=== PATIENT | female | born 1940 | race Caucasian/White ===

== ENCOUNTER → 2018-07-19 07:51 | Outpatient (CLI) | payer MEDICARE, BC, SELFPAY ==
--- NOTE | 2018-07-19 | DI.MG.S_ITS ---
BILATERAL DIGITAL SCREENING MAMMOGRAM 3D/2D WITH CAD: 07/19/2018 CLINICAL: Routine screening. Comparison is made to exams dated: 05/18/2017 mammogram, 05/02/2016 mammogram, and 04/07/2015 mammogram - [facility]. There are scattered fibroglandular elements in both breasts. Current study was also evaluated with a Computer Aided Detection (CAD) system. There is architectural distortion in the left breast at 2 o'clock posterior depth. No other significant masses, calcifications, or other findings are seen in either breast. IMPRESSION: INCOMPLETE: NEEDS ADDITIONAL IMAGING EVALUATION The architectural distortion in the left breast is indeterminate. Additional views with possible ultrasound are recommended. This exam was interpreted at Station ID: [id number]. NOTE: For mammograms, a report in lay terms will be sent to the patient. Approximately 15% of breast malignancies will not be visualized mammographically. In the management of a palpable breast mass, a negative mammogram must not discourage biopsy of a clinically suspicious lesion. Electronically Signed By: Shante love/nehemiah:07/19/2018 09:14:41 letter sent: Additional Imaging Needed ACR BI-RADS Category 0: Incomplete 3340F
== END ==
PROVIDERS: PCP Nurse Practitioner Family; Visit Provider Nurse Practitioner Family
DX: Z12.31 Encounter for screening mammogram for malignant neoplasm of breast (principal)
CPT/HCPCS: 77063; 77067

== ENCOUNTER → 2018-08-15 14:37 | Outpatient (CLI) | payer MEDICARE, BC, SELFPAY ==
--- NOTE | 2018-08-15 | DI.MG.S_ITS ---
UNILATERAL LEFT DIGITAL DIAGNOSTIC MAMMOGRAM 3D/2D WITH ADDITIONAL VIEWS: 08/15/2018 CLINICAL: Additional evaluation requested from prior study. Comparison is made to exams dated: 07/19/2018 mammogram, 05/18/2017 mammogram, and 05/02/2016 mammogram - [facility]. There are scattered fibroglandular elements in left breast. There is architectural distortion in the left breast at 2 o'clock posterior depth. This is less prominent on additional views. No other significant masses or calcifications are seen in the breast. IMPRESSION: INCOMPLETE: NEEDS ADDITIONAL IMAGING EVALUATION The architectural distortion in the left breast is indeterminate. A targeted ultrasound of the left breast is recommended and will be performed immediately following this exam. This exam was interpreted at Station ID: [id number]. NOTE: For mammograms, a report in lay terms will be sent to the patient. Approximately 15% of breast malignancies will not be visualized mammographically. In the management of a palpable breast mass, a negative mammogram must not discourage biopsy of a clinically suspicious lesion. Electronically Signed By: Shante Piña M.D. lk/:08/15/2018 15:05:52 letter sent: Additional Imaging Needed ACR BI-RADS Category 0: Incomplete 3340F
--- NOTE | 2018-08-15 | DI.US.S_ITS ---
ULTRASOUND OF LEFT BREAST: 08/15/2018 CLINICAL: Patient returns for additional imaging over a suspected mass in the left breast. Comparison is made to exams dated: 08/15/2018 mammogram, 07/19/2018 mammogram, and 05/18/2017 mammogram - [facility]. Color flow and real-time ultrasound of the left breast were performed on the areas of interest. Rodgers scale images of the real-time examination were reviewed. There is 0.5 cm x 0.4 cm x 0.9 cm irregular mass in the left breast at 2 o'clock posterior depth. This irregular mass is hypoechoic. This correlates with mammography findings. Color flow imaging demonstrates that there is vascularity present. IMPRESSION: SUSPICIOUS OF MALIGNANCY The 0.5 cm x 0.4 cm x 0.9 cm irregular mass in the left breast is at a low suspicion for malignancy. An ultrasound guided biopsy is recommended. This exam was interpreted at Station ID: [id number]. SUMMARY: This was discussed with the patient by the radiologist, Dr. Banegas at the time of the exam. Electronically Signed By: Shante love/nehemiah:08/15/2018 17:51:49 letter sent: Biopsy Required Ultrasound BI-RADS: 4a Suspicious abnormality - low suspicion for malignancy
== END ==
PROVIDERS: PCP Nurse Practitioner Family; Visit Provider Nurse Practitioner Family
DX: R92.8 Other abnormal and inconclusive findings on diagnostic imaging of breast (principal); N63.21 Unspecified lump in the left breast, upper outer quadrant
CPT/HCPCS: 76642; 77065; G0279

== ENCOUNTER → 2018-09-17 12:18 | Outpatient (CLI) | payer MEDICARE, BC, SELFPAY ==
--- NOTE | 2018-09-17 | DI.MG.S_ITS ---
UNILATERAL LEFT DIGITAL DIAGNOSTIC MAMMOGRAM: 09/17/2018 CLINICAL: Post clip placement. Comparison is made to exams dated: 08/15/2018 mammogram, 07/19/2018 mammogram, 05/18/2017 mammogram, and 05/02/2016 mammogram - [facility]. There are scattered fibroglandular elements in left breast. There is a marker clip in the appropriate position in the left breast at 3 o'clock anterior depth. This marker clip placement is at the biopsy site. IMPRESSION: POST PROCEDURE MAMMOGRAM FOR MARKER PLACEMENT There was a successful marker clip placement in the left breast anterior depth. This exam was interpreted at Station ID: [id number]. NOTE: For mammograms, a report in lay terms will be sent to the patient. Approximately 15% of breast malignancies will not be visualized mammographically. In the management of a palpable breast mass, a negative mammogram must not discourage biopsy of a clinically suspicious lesion. Electronically Signed By: Joao humphreys/:09/17/2018 15:40:16 ACR BI-RADS Category Post-procedure mammogram for marker placement
--- NOTE | 2018-09-17 | PATH_ITS ---
[facility] Accession Number: [id number] . 01 Material submitted: . LEFT BREAST . 01 Clinical history: . MASS 2:30 6CM FN . 01 Diagnosis: Left Breast, Needle Core Biopsies: Breast parenchyma with fibrocystic changes. Negative for atypical hyperplasia, in situ or invasive carcinoma. Additional step sections examined. MRV/09/19/2018 . 01 Comment: As part of routine quality control systems manager, Dr. Anton has reviewed the initial levels from this case and agrees with the above diagnosis. . 01 Electronically signed: . Rory Pendleton MD, PhD, Pathologist NPI- [id number] . 01 Gross description: . Received one formalin-filled container labeled with the patient's name and designated left breast mass 2:30, 6 cm FN. The specimen is received with plastic filter, sample loose in container. The specimen consists of multiple fragments of light yellow-navarro to yellow-sanchez tissue, which aggregate to 1.5 x 0.5 x 0.2 cm. The specimen is filtered, wrapped and entirely submitted in one cassette. Collection date 09/17/2018. Collection time 1:40 p.m., per container. Total fixation time 12 hours up to 24. ([facility] [employer]:[id number]) /[facility] . 01 Pathologist provided ICD-10: N63.21 . 01 CPT . 019433 Performed at: [address] [facility], [place], [place] [id number] MD Pavan Jasso MD Phone: [phone]
--- NOTE | 2018-09-17 | DI.US.S_ITS ---
ULTRASOUND GUIDED BIOPSY LEFT BREAST USING VACUUM DEVICE WITH MARKING DEVICE INSERTED: 09/17/2018 CLINICAL: Left breast mass. PATIENT CONSENT: Risks (minor bleeding, infection, vasovagal reaction and repeat procedure), benefits and alternatives were explained to the patient and written informed consent was obtained. Correlation is made to exams dated: 08/15/2018 ultrasound, 08/15/2018 mammogram, 07/19/2018 mammogram, 05/18/2017 mammogram, and 05/02/2016 mammogram - [facility]. An ultrasound guided biopsy using real-time ultrasound was performed for the mass located in the left breast at 2 o'clock posterior depth. This was described in previous comparison ultrasound exam of 08/15/2018. The skin was prepped in the usual manner. The abnormality was approached from the lateral aspect. A biopsy needle was placed adjacent to the abnormality under ultrasound guidance. Once the needle was documented to be in the correct location, three specimens were obtained using the Mammotome biopsy system. A clip was inserted into the biopsy cavity. The specimens were sent to the laboratory for pathological analysis. IMPRESSION: ULTRASOUND GUIDED BIOPSY Ultrasound guided biopsy of the mass in the left breast at 2 o'clock posterior depth was successful. Waiting for pathology results. Final pathology results per pathologist Dr. Rory Pendleton identified benign breast parenchyma with fibrocystic changes. Samples were negative for atypical hyperplasia, in situ, or invasive carcinoma. Findings are concordant with imaging. A follow-up ultrasound in 6 months is recommended. These results will be communicated to the patient's referring provider. This exam was interpreted at Station ID: [id number]. Joao humphreys,ecl/:10/02/2018 19:27:23
== END ==
PROVIDERS: PCP Nurse Practitioner Family; Visit Provider Nurse Practitioner Family
DX: N60.12 Diffuse cystic mastopathy of left breast (principal)
CPT/HCPCS: 19083; 77065; 88305

== ENCOUNTER → 2019-04-08 08:10 | Outpatient (CLI) | payer MEDICARE, BC, SELFPAY ==
--- NOTE | 2019-04-08 | DI.US.S_ITS ---
ULTRASOUND OF LEFT BREAST: 04/08/2019 CLINICAL: 6 month follow-up biopsy. Comparison is made to exams dated: 09/17/2018 mammogram, 09/17/2018 ultrasound biopsy, and 08/15/2018 [facility]. Color flow and real-time ultrasound of the left breast were performed. Rodgers scale images of the real-time examination were reviewed. There is a 0.6 cm x 0.4 cm x 0.2 cm oval mass in the left breast at 2 o'clock posterior depth. This abnormality is not significantly changed. There is a biopsy clip seen in the tissues immediately adjacent to the mass. IMPRESSION: BENIGN The 0.6 cm x 0.4 cm x 0.2 cm oval mass in the left breast has not significantly changed and was biopsy proven to be benign. Return to annual mammogram screening schedule is recommended. Findings and recommendations were conveyed to the patient at time of exam. This exam was interpreted at Station ID: [id number]. Electronically Signed By: Milly partida/:04/08/2019 08:59:04 letter sent: Normal Exam Ultrasound BI-RADS: 2 Benign
== END ==
PROVIDERS: PCP Nurse Practitioner Family; Visit Provider Nurse Practitioner Family
DX: R92.8 Other abnormal and inconclusive findings on diagnostic imaging of breast (principal); D24.2 Benign neoplasm of left breast
CPT/HCPCS: 76642

== ENCOUNTER → 2019-09-08 07:49 | Outpatient (CLI) | payer MEDICARE, BC, SELFPAY ==
--- NOTE | 2019-09-08 | DI.MG.S_ITS ---
BILATERAL DIGITAL SCREENING MAMMOGRAM 3D/2D WITH CAD: 09/08/2019 CLINICAL: Routine screening. Comparison is made to exams dated: 07/19/2018 mammogram, 05/18/2017 mammogram, and 05/02/2016 mammogram - [facility]. There are scattered fibroglandular elements in both breasts. Current study was also evaluated with a Computer Aided Detection (CAD) system. There are benign vascular calcifications in both breasts. No significant masses, calcifications, or other findings are seen in either breast. There has been no significant interval change. IMPRESSION: There is no mammographic evidence of malignancy. A 1 year screening mammogram is recommended. This exam was interpreted at Station ID: [id number]. NOTE: For mammograms, a report in lay terms will be sent to the patient. Approximately 15% of breast malignancies will not be visualized mammographically. In the management of a palpable breast mass, a negative mammogram must not discourage biopsy of a clinically suspicious lesion. Electronically Signed By: Shante love/nehemiah:09/09/2019 08:41:55 letter sent: Normal Exam ACR BI-RADS Category 2: Benign Finding(s) 3342F
== END ==
PROVIDERS: PCP Nurse Practitioner Family; Visit Provider Nurse Practitioner Family
DX: Z12.31 Encounter for screening mammogram for malignant neoplasm of breast (principal)
CPT/HCPCS: 77063; 77067

== ENCOUNTER → 2021-02-09 08:11 | Outpatient (CLI) | payer MEDICARE, BC, SELFPAY ==
--- NOTE | 2021-02-09 | DI.MG.S_ITS ---
BILATERAL DIGITAL SCREENING MAMMOGRAM 3D/2D WITH CAD: 02/09/2021 CLINICAL: Routine screening. Comparison is made to exams dated: 09/08/2019 mammogram, 07/19/2018 mammogram, and 05/18/2017 mammogram - [facility]. There are scattered fibroglandular elements in both breasts. Current study was also evaluated with a Computer Aided Detection (CAD) system. There are benign vascular calcifications in both breasts. There also is a biopsy clip in the left breast. No significant masses, calcifications, or other findings are seen in either breast. There has been no significant interval change. IMPRESSION: BENIGN There is no mammographic evidence of malignancy. A 1 year screening mammogram is recommended. This exam was interpreted at Station ID: [id number]. NOTE: For mammograms, a report in lay terms will be sent to the patient. Approximately 15% of breast malignancies will not be visualized mammographically. In the management of a palpable breast mass, a negative mammogram must not discourage biopsy of a clinically suspicious lesion. Electronically Signed By: Troy Morris acr/penrad:02/09/2021 09:53:51 letter sent: Normal Exam ACR BI-RADS Category 2: Benign Finding(s) 3342F
== END ==
PROVIDERS: PCP Nurse Practitioner Family; Referring Provider Nurse Practitioner Family; Visit Provider Nurse Practitioner Family
DX: Z12.31 Encounter for screening mammogram for malignant neoplasm of breast (principal)
CPT/HCPCS: 77063; 77067

== ENCOUNTER → 2021-12-01 08:17 | Outpatient (CLI) | payer MEDICARE, BC, SELFPAY ==
--- NOTE | 2021-12-01 08:20 | DI.RAD.S_ITS ---
PROCEDURE: XR CERVICAL SPINE 2V OR 3V INDICATIONS: scoliosis concern TECHNIQUE: 3 view(s) of the cervical spine were acquired. COMPARISON: None. FINDINGS: Bones: No fractures or dislocations to the C7 level. The lateral masses of C1 appear intact on the odontoid view. Moderate disc height loss with endplate osteophytosis most prominent at C5-C7. Uncovertebral/facet arthrosis. Soft tissues: No prevertebral soft tissue swelling. IMPRESSION: Degenerative change of the cervical spine as detailed above. Dictated by: Tree Kumar M.D. on 12/01/2021 at 10:28 Approved by: Tree Kumar M.D. on 12/01/2021 at 10:39
--- NOTE | 2021-12-01 08:21 | DI.RAD.S_ITS ---
PROCEDURE: XR THORACIC SPINE 2V INDICATIONS: scoliosis concern TECHNIQUE: 3 views of the thoracic spine were acquired. COMPARISON: None. FINDINGS: Bones: No fractures or dislocations. No suspicious bony lesions. 12 pairs of ribs are noted, and appear intact where visualized. Multilevel degenerative changes of the thoracic spine with anterior osteophytes at multiple levels. No vertebral body height loss. Mild S-shaped curvature of the thoracic spine with leftward curvature of the upper thoracic spine with the apex at T4 and a Dinh angle of 12?. Soft tissues: No paravertebral stripe thickening. The aorta has atherosclerotic calcifications. IMPRESSION: 1. Multilevel degenerative changes of the thoracic spine. 2. S-shaped curvature of the thoracic spine and with a left apex at T4 and a Dinh angle of 12? Dictated by: Troy Morris M.D. on 12/01/2021 at 11:09 Approved by: Troy Morris M.D. on 12/01/2021 at 11:12
--- NOTE | 2021-12-01 08:21 | DI.RAD.S_ITS ---
PROCEDURE: XR LUMBAR SPINE 2-3V INDICATIONS: scoliosis concern TECHNIQUE: 2 views of the lumbar spine were acquired. COMPARISON: None. FINDINGS: Bones: 5 vei-hyi-liftqgg vertebrae are present. There is normal bony alignment. No vertebral body compression fractures. No suspicious bony lesions. Degenerative disc disease, severe at L4-L5, moderate at T12-L1, L1-L2, L2-L3, L3-L4 and L5-S1. Severe facet arthropathy at L4-L5 and L5-S1. Soft tissues: Overlying bowel gas pattern is normal. Severe atherosclerotic calcifications. IMPRESSION: Severe degenerative disc disease and facet arthropathy. Dictated by: Cha Woo M.D. on 12/01/2021 at 17:21 Approved by: Cha Woo M.D. on 12/01/2021 at 17:23
== END ==
PROVIDERS: PCP Nurse Practitioner Family; Referring Provider Nurse Practitioner Family; Visit Provider Nurse Practitioner Family
DX: M47.812 Spondylosis without myelopathy or radiculopathy, cervical region (principal); M47.814 Spondylosis without myelopathy or radiculopathy, thoracic region; M47.816 Spondylosis without myelopathy or radiculopathy, lumbar region; M47.817 Spondylosis without myelopathy or radiculopathy, lumbosacral region; M51.35 Other intervertebral disc degeneration, thoracolumbar region; M51.36 Other intervertebral disc degeneration, lumbar region; M51.37 Other intervertebral disc degeneration, lumbosacral region
CPT/HCPCS: 72040; 72072; 72100

== ENCOUNTER → 2022-03-21 08:18 | Outpatient (CLI) | payer MEDICARE, BC, SELFPAY ==
--- NOTE | 2022-03-21 | DI.MG.S_ITS ---
BILATERAL DIGITAL SCREENING MAMMOGRAM 3D/2D WITH CAD: 03/21/2022 CLINICAL: Routine screening. Comparison is made to exams dated: 02/09/2021 mammogram, 09/08/2019 mammogram, 09/17/2018 mammogram, 08/15/2018 mammogram, and 07/19/2018 mammogram - [facility]. There are scattered fibroglandular elements in both breasts. Current study was also evaluated with a Computer Aided Detection (CAD) system. There are benign vascular calcifications in both breasts. There also are benign post operative findings and biopsy clip in the left breast. No significant masses, calcifications, or other findings are seen in either breast. There has been no significant interval change. IMPRESSION: BENIGN There is no mammographic evidence of malignancy. A 1 year screening mammogram is recommended. This exam was interpreted at Station ID: [id number]. NOTE: For mammograms, a report in lay terms will be sent to the patient. Approximately 15% of breast malignancies will not be visualized mammographically. In the management of a palpable breast mass, a negative mammogram must not discourage biopsy of a clinically suspicious lesion. Electronically Signed By: Galindo morfin/nehemiah:03/21/2022 09:50:51 letter sent: Normal Exam ACR BI-RADS Category 2: Benign Finding(s) 3342F
== END ==
PROVIDERS: PCP Nurse Practitioner Family; Referring Provider Nurse Practitioner Family; Visit Provider Nurse Practitioner Family
DX: Z12.31 Encounter for screening mammogram for malignant neoplasm of breast (principal)
CPT/HCPCS: 77063; 77067

== ENCOUNTER 2022-05-01 07:30 | Day surgery (SDC) | payer MEDICARE, BC, SELFPAY ==
[2022-05-01] VITALS (7 sets, daily range): BP systolic 127–170; BP diastolic 65–92; PULSE 65–94; RESP 16–18; TEMP 35.8–36.7; O2SAT 95–100; BMI 28.3
--- NOTE | 2022-05-01 | PATH_ITS ---
[facility] Accession Number: [id number] No. of containers..01 Tissue . 01 Material submitted: . colon - RANDOM COLON BIOPSIES . 01 Diagnosis: Random Colon, Biopsies: Lymphocytic colitis. MRV 05/02/2022 1105 Local . 01 Electronically signed: . Michelle Ravi MD, Pathologist NPI- [id number] . 01 Gross description: . RANDOM COLON BIOPSIES: Received in formalin are 4 fragment(s) of sanchez, soft tissue measuring 0.1 x 0.1 x 0.1 cm in aggregate submitted entirely in 1 cassette(s) /JCARLOS 05/02/2022 0116 Local . 01 Pathologist provided ICD-10: K52.89, R19.7 . 01 CPT . 228485 Specimen Comment: A courtesy copy of this report has been sent to [phone] Performed at: 01 [facility] [address] [place] [address], [place], [place] [id number] MD Pavan Jasso MD Phone: [phone]
[2022-05-01] MEDS: SODIUM CHLORIDE 0.9% 1,000 ML 84 ML IV (08:20)
--- NOTE | 2022-05-01 08:58 | PM.HP.1 ---
History of Present Illness History of Present Illness Date Patient Seen: 05/01/22 Time Patient Seen: 08:58 Chief complaint: SDC Narrative: I reviewed the note from Dr. Orourke. No significant changes. Patient History Medical History Glaucoma Gout HTN (hypertension) Hypothyroid Surgical History History of third molar tooth extraction Status post appendectomy Status post surgery (07/24/14) Status post surgery (04/27/17) Family & Social History Family History Father Cancer Hypertension Sister Age: 75 Mental health problem Social History: household members spouse Tobacco & Substance use: Smoking Status Never smoker alcohol intake frequency 0-2 drinks per day Substance Use Type does not use Meds Home Medications and Allergies Home Medications Medication Instructions Recorded Confirmed Type CHOLECALCIFEROL (VITAMIN D) 2,000 iu PO Q DAY ##0 03/01/11 05/01/22 History allopurinol 100 mg tablet 200 mg PO QDAY #180 tabs 01/23/17 05/01/22 Rx diclofenac sodium 1 % topical gel 1 danay topical BID ##100 01/23/17 05/01/22 Rx (Voltaren) levothyroxine 125 mcg tablet 125 mcg PO QDAY #90 tabs 01/23/17 05/01/22 Rx (Synthroid) losartan 25 mg tablet 25 mg PO QDAY #30 tabs 05/02/17 05/01/22 Rx Prilosec 20 mg PO DAILY 05/01/22 05/01/22 History Allergies Allergy/AdvReac Type Severity Reaction Status Date / Time Penicillins Allergy Intermediate HIVES Verified 05/01/22 07:48 YASH Inhibitors Allergy Mild cough Verified 05/01/22 07:48 [YASH INHIBITORS] codeine AdvReac Mild NAUSEA Verified 05/01/22 07:48 Review of Systems Review of Systems ROS: Yes All systems reviewed with the patient and are negative except as otherwise documented Exam Vital Signs (past 8 hours): - 05/01/22 08:01 Temperature 97.0 F L Pulse Rate 94 H Respiratory Rate 16 Blood Pressure 158/92 H Pulse Oximetry 95 Oxygen Delivery Method Room Air Oxygen Delivery Method Room Air Const General: cooperative HENMT Head: normal to inspection Eyes General: appearance normal, both eyes and all related structures Neck Neck: normal visual inspection Chest Chest: normal inspection of the chest Resp Effort & Inspection: normal respiratory effort Cardio Rate: regular rate GI Inspection: normal to inspection Skin General: no rashes or lesions noted Neuro General: patient alert and patient awake Extrem General: normal to inspection and no pedal edema Psych Appearance: grossly normal Assessment & Plan Assessment & Plan narrative: 82-year-old female with chronic diarrhea since the spring. Colonoscopy is pursued today. Time Spent With Patient Critical Care time: I spent a total of [] minutes of critical care time on this patient's care today; this time is exclusive of procedural time.
--- NOTE | 2022-05-01 09:31 | PM.PREOP ---
Pre-operative Note COVID-19 COVID-19 status: Negative Result date/Date tested (Pos, Neg/Pending): 04/29/22 Criteria for continued procedure: Possibility delay results in more complex future surgery or treatment Interval Note History & Physical reviewed/Exam performed by Physician: Yes Changes to H&P: No ASA Class (for procedural sedation): II
--- NOTE | 2022-05-01 09:50 | PM.OP.COLON ---
Operative Date/Time/Diagnoses Date of procedure: 05/01/22 Time of procedure: 09:50 Pre-op diagnosis: Diarrhea Post-op diagnosis: same Procedure & Clinicians Study performed: Colonoscopy with biopsies Same procedure as scheduled: Yes Indications: Diarrhea Surgeon: Yogi Govea Procedure Notes SCOAP/Timeout: Done Procedure in detail: After the risks and benefits were explained, written and verbal informed consent was obtained. The patient was brought into the procedure room and placed into the left lateral decubitus position. Please see nurse solar electric/photovoltaic installer notes for sedation details. Digital rectal examination was accomplished. The scope was introduced into the patient and advanced under direct visualization to the cecum as identified by the appendiceal orifice and ileocecal valve. The scope was slowly withdrawn to carefully examine the mucosa for any defects or lesions. Comprehensive imaging was accomplished throughout the rectum including the dentate line. The colon was decompressed, the scope was then removed from the patient who tolerated the procedure well. Pediatric colonoscope Bowel prep adequate Scope withdrawal time: 9 minutes Sedation minutes: 15 Complications: none Impression: No significant polyps mass lesions or inflammatory features identified throughout. Random colon biopsies were taken for exclusion of microscopic colitis. The terminal ileum was interrogated and appeared visually normal. Patient had grade 3 nonbleeding nonthrombosed hemorrhoids. Endoscopic diagnosis 1. Grade 3 hemorrhoids 2. Otherwise visually unremarkable colonoscopy to cecum and terminal ileum Post-procedure Plan for aftercare: 1. Await histopathology. 2. In the interim continue Imodium as needed to control stool frequency. Disposition: PACU
== END 2022-05-01 10:32 | disposition home or self-care (01) ==
PROVIDERS: PCP Nurse Practitioner Family; Referring Provider Internal Medicine Gastroenterology; Visit Provider Internal Medicine Gastroenterology
PROC: 0DJD8ZZ Inspection of Lower Intestinal Tract, Via Natural or Artificial Opening Endoscopic (ICD-10-PCS; CPT 45378; principal; 2022-05-01 09:00)
DX: K52.832 Lymphocytic colitis (principal); K64.2 Third degree hemorrhoids
CPT/HCPCS: 45380; J2704

== ENCOUNTER → 2023-04-24 08:18 | Outpatient (CLI) | payer MEDICARE, BC, SELFPAY ==
--- NOTE | 2023-04-24 | DI.MRI.S_ITS ---
PROCEDURE: MR LUMBAR SPINE WO CON INDICATIONS: Spondylolisthesis, lumbar region TECHNIQUE: Noncontrast sagittal T1 spin echo and T2 fast echo, sagittal STIR, and T2 fast spin echo through the lumbar spine. In cases with scoliosis, additional coronal T2 fast spin echo may be performed. COMPARISON: [facility] [place], CR, XR LUMBAR SPINE 2 OR 3 VIEWS, 03/29/2023, 9:37. FINDINGS: Image quality: Excellent. Alignment and Curvature: 4 mm anterolisthesis of L4 on L5. Bone Marrow: Marrow is of normal overall signal. No acute vertebral body compression fractures. Spinal Cord: Conus medullaris terminates at the L1 level. Visualized cord demonstrates normal signal and size. Paraspinous Soft Tissues: No paravertebral masses. T12-L1: Normal appearance. L1-L2: Disc bulge. Facet hypertrophy. Moderate left foraminal stenosis. L2-L3: Disc bulge. Facet and ligament hypertrophy. No significant canal stenosis or foraminal stenosis. L3-L4: Disc bulge. Facet and ligament hypertrophy. Mild canal stenosis. Xrkw-ra-oghrthqi left foraminal narrowing. L4-L5: Anterolisthesis of L4 on L5, disc bulge, relatively exuberant facet and ligament hypertrophy, high-grade canal stenosis. Lhaw-io-hzzxfdip right foraminal stenosis. No significant left foraminal stenosis. L5-S1: Prominent bilateral facet hypertrophy. No canal stenosis or foraminal stenosis. IMPRESSION: 1. Underlying multilevel facet arthropathy. 2. High-grade canal stenosis at L4-L5. There is mild canal stenosis at L3-L4. 3. Multilevel foraminal narrowing as described above, moderate on the left at L1-L2. Dictated by: Vimal Carvalho M.D. on 04/24/2023 at 13:39 Approved by: Vimal Carvalho M.D. on 04/24/2023 at 13:44
== END ==
PROVIDERS: PCP Family Medicine; Referring Provider Orthopaedic Surgery Orthopaedic Surgery of the Spine; Visit Provider Orthopaedic Surgery Orthopaedic Surgery of the Spine
DX: M43.16 Spondylolisthesis, lumbar region (principal); M47.816 Spondylosis without myelopathy or radiculopathy, lumbar region; M47.817 Spondylosis without myelopathy or radiculopathy, lumbosacral region; M48.061 Spinal stenosis, lumbar region without neurogenic claudication
CPT/HCPCS: 72148

== ENCOUNTER 2025-05-12 21:12 | Inpatient (IN) | payer MEDICARE, BC, SELFPAY ==
[2025-05-12] VITALS (7 sets, daily range): BP systolic 190–209; BP diastolic 79–98; PULSE 85–90; RESP 18–25; TEMP 36.7; O2SAT 81–97; BMI 29.5
--- NOTE | 2025-05-12 21:29 | EKG_ITS ---
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
--- NOTE | 2025-05-12 21:29 | DI.RAD.S_ITS ---
PROCEDURE: XR CHEST 1V INDICATIONS: chest pain TECHNIQUE: One view of the chest was acquired. COMPARISON: None. FINDINGS: Surgical changes and devices: None. Lungs and pleura: Lungs are clear. No pleural effusions or pneumothorax. Mediastinum: Mediastinal contours appear normal. Heart size is normal. Bones and chest wall: No suspicious bony lesions. Overlying soft tissues appear unremarkable. IMPRESSION: No acute cardiopulmonary abnormality is seen. Dictated by: Galindo Pugh M.D. on 05/12/2025 at 23:16 Approved by: Galindo Pugh M.D. on 05/12/2025 at 23:17
[2025-05-12 21:37] LABS: Hematocrit 40.6 % (36-46); Hemoglobin 13.7 g/dL (12.0-16.0); Mean Corpuscular HGB Conc 33.7 % (30-36); Mean Corpuscular Hemoglobin 34.6 PG (26-34); Mean Corpuscular Volume 102.6 fL (80-100); Platelet Count 200 X10^3/uL (150-400)
[2025-05-12 21:45] LABS: Add Manual Diff / Slide Review YES
--- NOTE | 2025-05-12 21:45 | EKG_ITS ---
[address] [address] Test Date: 2025-05-12 Pat Name: Ananya Mackey Department: [facility] Room: Gender: Female [employer] Director: REUBEN : 1940 Requested By: Order Number: [id number] Reading MD: Carlos Enrique Gomez MD Measurements Intervals [place] Rate: 85 P: 41 MS: 202 QRS: 50 QRSD: 84 T: 15 QT: 366 QTc: 435 Interpretive Statements Normal sinus rhythm Electronically Signed On 05-13-2025 7:33:47 PDT by Carlos Enrique Gomez MD
[2025-05-12 21:49] LABS: Alanine Aminotransferase 23 IU/L (<35); Albumin 4.3 g/dL (3.5-5.0); Albumin Globulin Ratio 1.4 (1.0-2.8); Alkaline Phosphatase 82 U/L (38-126); Blood Urea Nitrogen 9 mg/dL (7-17); Calcium 9.9 mg/dL (8.4-10.2); Carbon Dioxide 21 mmol/L (22-32); Chloride 103 mmol/L (98-107); Creatine Kinase 100 U/L (30-135); Estimated Glomerular Filt Rate > 60 mL/min (>60); Globulin 3.1 g/dL (1.7-4.1); Glucose 126 mg/dL (70-99); HEMOLYSIS < 15 (0-50); Lipase 50 U/L (23-300); Potassium 3.7 mmol/L (3.4-5.1); Sodium 136 mmol/L (137-145); Total Protein 7.4 g/dL (6.3-8.2)
--- NOTE | 2025-05-12 21:53 | ED.SYNCOPE ---
HPI - Syncope General Chief Complaint: Syncope Stated Complaint: syncopal Time Seen by Provider: 05/12/25 21:28 Source: patient and EMS Mode of arrival: EMS Limitations: no limitations History of Present Illness HPI narrative: 85-year-old female was seen earlier today at [facility] for possible urine infection, was started on antibiotics she believes was nitrofurantoin which he has had before, took 1st antibiotic proximally noon hour, was cooking dinner 6:00 p.m. making salad, then woke up on the floor with slip cover sewer in her at bedside. She denies hitting her head. She denies pain to her head, face, neck, upper middle lower back, anterior abdomen, chest, extremities. She would not seem to have an allergic reaction to the nitrofurantoin, no itching or shortness of breath or hives. She has taken nitrofurantoin in the past without problems. She was transported by helicopter here for further evaluation of her syncopal episode. No specific treatment during transport by EMS. Related Data Home Medications ?Medication ?Instructions ?Recorded ?Confirmed CHOLECALCIFEROL (VITAMIN D) 2,000 iu PO Q DAY ##0 03/01/11 05/01/22 Prilosec 20 mg PO DAILY 05/01/22 05/01/22 Previous Rx's ?Medication ?Instructions ?Recorded allopurinol 100 mg tablet 200 mg (2 x 100 mg) PO QDAY #180 01/23/17 tabs diclofenac sodium 1 % topical gel 1 danay topical BID ##100 01/23/17 (Voltaren) levothyroxine 125 mcg tablet 125 mcg PO QDAY #90 tabs 01/23/17 (Synthroid) losartan 25 mg tablet 25 mg PO QDAY #30 tabs 05/02/17 Allergies Allergy/AdvReac Type Severity Reaction Status Date / Time Penicillins Allergy Intermediate HIVES Verified 05/12/25 21:32 Patient History Medical History Glaucoma Gout HTN (hypertension) Hypothyroid Surgical History History of third molar tooth extraction Status post appendectomy Status post surgery (07/24/14) Status post surgery (04/27/17) Family History Father Cancer Hypertension Sister Age: 75 Mental health problem Social History household members: spouse Smoking Status: Never smoker Smoking Status: Never smoker alcohol intake frequency: 0-2 drinks per day Alcohol type: wine Exam Narrative Exam Narrative: GENERAL: Well-developed patient, in mild distress. HEAD: Atraumatic. Normocephalic. EYES: Pupils equal round and reactive. Extraocular motions intact. No scleral icterus. No injection or drainage. ENT: Nose without bleeding, purulent drainage. Throat without erythema, tonsillar hypertrophy or exudate. Airway patent. NECK: Trachea midline. Non tender CARDIOVASCULAR: Regular rate and rhythm without murmurs, gallops, or rubs. RESPIRATORY: Clear to auscultation. Breath sounds equal bilaterally. No wheezes, rales, or rhonchi. GASTROINTESTINAL: Abdomen soft, non-tender, nondistended. EXTREMITIES: No edema or joint tenderness. BACK: Nontender without deformity or crepitance. No flank tenderness. NEURO: AOx3. Motor functions grossly nonfocal. SKIN: No rash or erythema of visible areas Initial Vital Signs Initial Vital Signs: Vital Signs Pulse Rate 90 05/12/25 21:21 Course Orders Ordered: ED Orders 05/12/25 22:29 Urinalysis and Microscopic Stat Urine Culture Stat 05/12/25 23:30 Blood Culture Stat 05/13/25 01:25 Lactate (Lactic Acid) Stat 05/13/25 03:07 Consult to Occupational Therapy Evaluate & Treat Consult to Physical Therapy Evaluate & Treat 05/14/25 06:00 Basic Metabolic Panel DAILY Complete Blood Count AUTO DIFF DAILY Acetaminophen (Acetaminophen 325 Mg Tablet) 650 mg PO Q6H PRN PRN Reason: Fever/Mild Pain (1-3) Allopurinol (Allopurinol 100 Mg Tablet) 200 mg PO DAILY HA Heparin Sodium (Porcine) (Heparin 5,000 Unit/Ml Vial) 5,000 unit SUBCUT BID HA Sodium Chloride (Normal Saline 0.9%) 1,000 mls @ 100 mls/hr IV CONT HA Last Admin: 05/13/25 03:25 Dose: 100 mls/hr Documented By: BALBIR Ceftriaxone Sodium 1,000 mg/ (Sodium Chloride) 100 mls @ 200 mls/hr IV Q24H HA Levothyroxine Sodium (Levothyroxine 125 Mcg Tablet) 125 mcg PO QACBREAK HA Losartan Potassium (Losartan 25 Mg Tablet) 25 mg PO DAILY REPLACED BY [facility] Naloxone HCl (Naloxone 0.4 Mg/Ml Vial) 0.2 mg IV Q2MIN PRN PRN Reason: Opiate Reversal Ondansetron HCl (Ondansetron 4 Mg/2 Ml Inj) 4 mg IV Q8HR PRN PRN Reason: Nausea And Vomiting Pantoprazole Sodium (Pantoprazole Dr 20 Mg Tablet) 20 mg PO DAILY HA Discontinued Medications Sodium Chloride (Normal Saline 0.9%) 1,000 mls @ 1,000 mls/hr IV BOLUS ONE Stop: 05/12/25 23:23 Last Infusion: 05/12/25 23:46 Dose: Infused Documented By: Admin: 05/12/25 22:35 Dose: 1,000 mls/hr Documented By: ADILENE Sodium Chloride (Normal Saline 0.9%) 1,000 mls @ 1,000 mls/hr IV BOLUS ONE Stop: 05/12/25 23:49 Last Infusion: 05/13/25 01:18 Dose: Infused Documented By: Admin: 05/12/25 23:47 Dose: 1,000 mls/hr Documented By: BALBIR Ceftriaxone Sodium 1,000 mg/ (Sodium Chloride) 100 mls @ 200 mls/hr IV NOW ONE Stop: 05/12/25 22:51 Last Infusion: 05/13/25 00:32 Dose: Infused Documented By: Admin: 05/12/25 23:46 Dose: 200 mls/hr Documented By: BALBIR Ceftriaxone Sodium 1,000 mg/ (Sodium Chloride) 100 mls @ 200 mls/hr IV Q24H REPLACED BY [facility] Vital Signs Vital signs: Vital Signs - 8 hr 05/12/25 23:25 05/12/25 23:28 05/12/25 23:28 Pulse Rate 90 87 Respiratory Rate 25 H 21 Blood Pressure 195/79 H Pulse Oximetry 81 L 97 Oxygen Delivery Method 05/12/25 23:30 05/12/25 23:30 05/13/25 00:00 Pulse Rate 86 Respiratory Rate 23 Blood Pressure 199/81 H 217/86 H Pulse Oximetry 97 Oxygen Delivery Method 05/13/25 00:00 05/13/25 00:30 05/13/25 00:31 Pulse Rate 82 94 H 90 Respiratory Rate 20 23 25 H Blood Pressure Pulse Oximetry 94 94 93 Oxygen Delivery Method Room Air Room Air Room Air 05/13/25 00:31 05/13/25 01:00 05/13/25 01:30 Pulse Rate 86 86 Respiratory Rate 29 H 23 Blood Pressure 194/80 H Pulse Oximetry 93 93 Oxygen Delivery Method Room Air Room Air 05/13/25 02:00 05/13/25 02:10 05/13/25 02:10 Pulse Rate 90 89 Respiratory Rate 33 H 23 Blood Pressure 199/87 H Pulse Oximetry 94 94 Oxygen Delivery Method Room Air Room Air 05/13/25 02:30 05/13/25 02:30 05/13/25 03:00 Pulse Rate 81 Respiratory Rate 20 Blood Pressure 168/73 H 173/80 H Pulse Oximetry 93 Oxygen Delivery Method Room Air 05/13/25 03:00 Pulse Rate 79 Respiratory Rate 21 Blood Pressure Pulse Oximetry 94 Oxygen Delivery Method Room Air MDM - Syncope Lab Data Attestation: I reviewed the patient's lab results. Lab results narrative: POC glucose 139. White blood cell count 54050, hemoglobin 13.7, platelets adequate. Glucose 126. BUN creatinine normal. Serum CO2 21, sodium 136 slightly low, potassium 3.7 normal. Liver functions and lipase normal. Troponin negative/unmeasurable. Urinalysis pending. 05/12/25 21:20 05/12/25 21:20 Labs: Lab Results 05/12/25 05/12/25 05/12/25 Range/Units 21:20 21:43 22:29 WBC 20.7 H (4.5-11.0) X10^3/uL RBC 3.95 L (4.0-5.2) X10^6/uL Hgb 13.7 (12.0-16.0) g/dL Hct 40.6 (36-46) % MCV 102.6 H (80-100) fL MCH 34.6 H (26-34) PG MCHC 33.7 (30-36) % RDW 12.9 (11.6-14.8) % Plt Count 200 (150-400) X10^3/uL Neut % (Auto) Not Reportable Lymph % (Auto) Not Reportable Graham % (Auto) Not Reportable Eos % (Auto) Not Reportable Baso % (Auto) Not Reportable Lymph # (Auto) Not Reportable Graham # (Auto) Not Reportable Baso # (Auto) Not Reportable Total Counted 100 Seg Neutrophils % 74.0 H (38-70) % Band Neutrophils % 16.0 H (3-7) % Lymphocytes % (Manual) 4.0 L (25-45) % Atypical Lymphs % 4.0 H ( - 0) % Monocytes % (Manual) 2.0 (2-11) % Neutrophils # (Manual) 43055 H (6517-5404) /uL RBC Morphology See below Macrocytosis 1+ H Sodium 136 L (137-145) mmol/L Potassium 3.7 (3.4-5.1) mmol/L Chloride 103 (98-107) mmol/L Carbon Dioxide 21 L (22-32) mmol/L BUN 9 (7-17) mg/dL Creatinine 0.59 (0.52-1.04) mg/dL Estimated GFR > 60 (>60) mL/min BUN/Creatinine Ratio 15.3 (6-22) Glucose 126 H (70-99) mg/dL POC Whole Bld Glucose 139 H (70-99) mg/dL Lactate 3.3 H (0.7-2.1) mmol/L Calcium 9.9 (8.4-10.2) mg/dL Total Bilirubin 0.7 (0.2-1.3) mg/dL AST 26 (14-36) IU/L ALT 23 (<35) IU/L Alkaline Phosphatase 82 (38-126) U/L Total Creatine Kinase 100 (30-135) U/L Troponin I < 0.012 (0.01-0.034) ng/mL Total Protein 7.4 (6.3-8.2) g/dL Albumin 4.3 (3.5-5.0) g/dL Globulin 3.1 (1.7-4.1) g/dL Albumin/Globulin Ratio 1.4 (1.0-2.8) Lipase 50 (23-300) U/L Urine Color Yellow Urine Appearance Sl cloudy Urine pH 5.5 (4.5-8.0) Ur Specific [place] 1.010 (1.000-1.035) Urine Protein Negative (Negative) Urine Glucose (UA) Negative (Negative) g/dL Urine Ketones Negative (NEGATIVE) Urine Occult Blood Negative (Negative) Urine Nitrate Negative (Negative) Urine Bilirubin Negative (NEGATIVE) Urine Urobilinogen 0.2 (0.2) E.U./dL Ur Leukocyte Esterase 2+ H (NEGATIVE) Urine RBC None seen (0-5/HPF) Urine WBC 1-5/hpf (0-5/HPF) Ur Squamous Epith Cells 0-1 /hpf (0-5/HPF) Urine Bacteria Moderate (10-30) H (None) Ur Culture Indicated? Specimen cultured Vol Urine Centrifuged 10ml (spun) 05/13/25 Range/Units 01:23 WBC (4.5-11.0) X10^3/uL RBC (4.0-5.2) X10^6/uL Hgb (12.0-16.0) g/dL Hct (36-46) % MCV (80-100) fL MCH (26-34) PG MCHC (30-36) % RDW (11.6-14.8) % Plt Count (150-400) X10^3/uL Neut % (Auto) Lymph % (Auto) Graham % (Auto) Eos % (Auto) Baso % (Auto) Lymph # (Auto) Graham # (Auto) Baso # (Auto) Total Counted Seg Neutrophils % (38-70) % Band Neutrophils % (3-7) % Lymphocytes % (Manual) (25-45) % Atypical Lymphs % ( - 0) % Monocytes % (Manual) (2-11) % Neutrophils # (Manual) (1562-6195) /uL RBC Morphology Macrocytosis Sodium (137-145) mmol/L Potassium (3.4-5.1) mmol/L Chloride (98-107) mmol/L Carbon Dioxide (22-32) mmol/L BUN (7-17) mg/dL Creatinine (0.52-1.04) mg/dL Estimated GFR (>60) mL/min BUN/Creatinine Ratio (6-22) Glucose (70-99) mg/dL POC Whole Bld Glucose (70-99) mg/dL Lactate 1.7 (0.7-2.1) mmol/L Calcium (8.4-10.2) mg/dL Total Bilirubin (0.2-1.3) mg/dL AST (14-36) IU/L ALT (<35) IU/L Alkaline Phosphatase (38-126) U/L Total Creatine Kinase (30-135) U/L Troponin I (0.01-0.034) ng/mL Total Protein (6.3-8.2) g/dL Albumin (3.5-5.0) g/dL Globulin (1.7-4.1) g/dL Albumin/Globulin Ratio (1.0-2.8) Lipase (23-300) U/L Urine Color Urine Appearance Urine pH (4.5-8.0) Ur Specific [place] (1.000-1.035) Urine Protein (Negative) Urine Glucose (UA) (Negative) g/dL Urine Ketones (NEGATIVE) Urine Occult Blood (Negative) Urine Nitrate (Negative) Urine Bilirubin (NEGATIVE) Urine Urobilinogen (0.2) E.U./dL Ur Leukocyte Esterase (NEGATIVE) Urine RBC (0-5/HPF) Urine WBC (0-5/HPF) Ur Squamous Epith Cells (0-5/HPF) Urine Bacteria (None) Ur Culture Indicated? Vol Urine Centrifuged Imaging Data Chest x-ray: Radiologist's Impression: [address] [address] XRay Report Signed Patient: Ananya Mackey MR#: [id number] : 1940 Acct:[id number] Age/Sex: 85 / F Date of Service: 05/12/25 Loc: ED Accession Number: [id number] Procedure: XR chest 1V Ordering Provider: Ervin Perkins MD PROCEDURE: XR CHEST 1V INDICATIONS: chest pain TECHNIQUE: One view of the chest was acquired. COMPARISON: None. FINDINGS: Surgical changes and devices: None. Lungs and pleura: Lungs are clear. No pleural effusions or pneumothorax. Mediastinum: Mediastinal contours appear normal. Heart size is normal. Bones and chest wall: No suspicious bony lesions. Overlying soft tissues appear unremarkable. IMPRESSION: No acute cardiopulmonary abnormality is seen. Dictated by: Galindo Pugh M.D. on 05/12/2025 at 23:16 Approved by: Galindo Pugh M.D. on 05/12/2025 at 23:17 CT scan - head: Radiologist's Impression: [address] [address] [address] Scan Report Signed Patient: Ananya Mackey MR#: [id number] : 1940 Acct:[id number] Age/Sex: 85 / F Date of Service: 05/12/25 Loc: ED Accession Number: [id number] Procedure: CT head/brain wo con Ordering Provider: Ervin Perkins MD PROCEDURE: CT HEAD/BRAIN WO CON INDICATIONS: syncope TECHNIQUE: Noncontrast 4.5 mm thick angled axial sections acquired from the foramen magnum to the vertex, with coronal and sagittal reformats. For radiation dose reduction, the following was used: automated exposure control, adjustment of mA and/or kV according to patient size. COMPARISON: None. FINDINGS: Image quality: Diagnostic. CSF spaces: Basal cisterns are patent. No extra-axial fluid collections. Ventricles are normal in size and shape. Brain: No midline shift. No intracranial mass effect or hemorrhage. No area of hypodensity in a large vascular distribution to suggest acute infarction. Periventricular hypodensity consistent with chronic microvascular ischemic change. Age-related parenchymal loss. Skull and face: Calvarium and visualized facial bones are intact, without suspicious lesions. Sinuses: Visualized sinuses and mastoids are clear. IMPRESSION: No acute intracranial pathology. Dictated by: Galindo Pugh M.D. on 05/13/2025 at 1:14 Approved by: Galindo Pugh M.D. on 05/13/2025 at 1:17 CTA chest: Radiologist's Impression: [place] [address] CT Scan Report Signed Patient: Ananya Mackey MR#: [id number] : 1940 Acct:[id number] Age/Sex: 85 / F Date of Service: 05/12/25 Loc: ED Accession Number: [id number] Procedure: CT angio chest PE protocol Ordering Provider: Ervin Perkins MD PROCEDURE: CT ANGIO CHEST PE PROTOCOL INDICATIONS: syncope TECHNIQUE: After the administration of intravenous contrast, 2 mm thick sections acquired from the pulmonary apices to the posterior costophrenic angles. 3-dimensional maximum intensity projection (MIP) coronal and sagittal reformats were then acquired through the thorax. For radiation dose reduction, the following was used: automated exposure control, adjustment of mA and/or kV according to patient size. COMPARISON: [facility], CR, XR CHEST 1V, 05/12/2025, 21:34. FINDINGS: Image quality: Diagnostic. Pulmonary arteries: Pulmonary arteries are normal in size, and demonstrate no intraluminal filling defects to suggest central pulmonary embolism. Lower Neck: No enlarged lymph nodes. Thyroid: No thyroid nodules which require sonographic follow up, per consensus guidelines. Axillae: No enlarged lymph nodes. Chest Wall: Unremarkable. Bones: No suspicious osseous lesion. Lungs and Pleura: No pneumothorax or pleural effusions. No consolidation or suspicious nodules. Interlobular septal thickening. Heart: Heart size is normal. No pericardial effusion. Thoracic Vessels: No aortic aneurysm. Mediastinum and Magi: No enlarged lymph nodes. Esophagus: No wall thickening. No hiatal hernia. Upper Abdomen: Visualized upper abdomen solid organs and bowel loops appear normal. IMPRESSION: 1. No pulmonary embolism. 2. Interlobular septal thickening. This could represent pulmonary edema. Dictated by: Galindo Pugh M.D. on 05/13/2025 at 1:17 Approved by: Galindo Pugh M.D. on 05/13/2025 at 1:23 CT scan - abdomen/pelvis: Radiologist's Impression: [place] [address] CT Scan Report Signed Patient: Ananya Mackey MR#: [id number] : 1940 Acct:[id number] Age/Sex: 85 / F Date of Service: 05/12/25 Loc: ED Accession Number: [id number] Procedure: CT abdomen pelvis w con Ordering Provider: Ervin Perkins MD PROCEDURE: CT ABDOMEN PELVIS W CON INDICATIONS: syncope, hi WBC TECHNIQUE: After the administration of intravenous contrast, axial sections acquired from the lung bases to the pubic symphysis. Coronal and sagittal reformats were performed. For radiation dose reduction, the following was used: automated exposure control, adjustment of mA and/or kV according to patient size. COMPARISON: None. FINDINGS: Image quality: Diagnostic. Lower Chest: No significant findings. ABDOMEN: Liver: No solid mass. Gallbladder: Gallstones x3. Larger stone measuring 1.6 cm. Biliary ducts: No biliary dilation. Pancreas: No ductal dilation. Spleen: Size is within normal limits. Adrenal Glands: No adrenal nodules. Kidneys and Ureters: No hydronephrosis. No solid mass. No complex renal cystic lesion which requires follow up. Stomach and Bowel: Normal colonic caliber, without significant wall thickening. A few colonic diverticuli. The appendix is not seen. Peritoneum: No abnormal intraperitoneal fluid. No free air. Ventral Wall: No significant ventral hernia. Abdominal Nodes: No retroperitoneal or mesenteric adenopathy by size criteria. Vessels: Aorta and inferior vena cava are normal in size. PELVIS: Pelvic Organs: Anteverted uterus. Bladder: No bladder wall thickening. Pelvic Nodes: No enlarged lymph nodes. Miscellaneous: No inguinal hernias are seen. Bones: No aggressive osseous abnormality. IMPRESSION: No acute inflammatory process identified. Gallstones. Dictated by: Galindo Pugh M.D. on 05/13/2025 at 1:23 Approved by: Galindo Pugh M.D. on 05/13/2025 at 1:28 ECG Data Attestation: I personally reviewed and interpreted this ECG as follows: Interpretation: 2145, normal sinus rhythm with rate of 85, no obvious ST segment elevation or depression changes. OR 202, QRS 84, QTC 435. MDM Narrative Medical decision making narrative: 85-year-old female recently started nitrofurantoin antibiotic for urinary tract infection diagnosed from [facility] yesterday, took 1st doses, woke up on the floor today after making salad, no obvious allergic reaction to the antibiotic, seemed to recovered, transported by air ambulance helicopter from [place] for further evaluation. EKG normal sinus rhythm, no obvious ischemic changes. Chest x-ray, no acute changes. See radiology report. Lab data: POC glucose 139. White blood cell count 20112, hemoglobin 13.7, platelets adequate. Glucose 126. BUN creatinine normal. Serum CO2 21, sodium 136 slightly low, potassium 3.7 normal. Liver functions and lipase normal. Troponin negative/unmeasurable. Urinalysis pending. Lactate 3.3 elevated, IV fluids, blood culture, IV ceftriaxone for broader spectrum coverage urinary infection or other process. CT head, CTA chest, CT abdomen and pelvis imaging pending. CT head noncontrast, no acute changes. See radiology report. CTA chest, no PE, no pulmonary infiltrates, no aortic artery syndrome. See radiology report. CT abdomen and pelvis with IV contrast. Gallstones noted. No acute process. See radiology report. Urinalysis suspicious for infection. Cultures requested. IV ceftriaxone given prior. 0315, syncopal episode, UTI/sepsis, further at observe entry as inpatient, repeat lactate pending. Case discussed with hospitalist Dr. Cardoza who accepts patient for admission Critical Care Time Critical Care Time Critical Care Time: Yes Total Critical Care Time: 35 Attestation: The high probability of a clinically significant, sudden or life threatening deterioration of the [metabolic, abdominopelvic, genitourinary, cardiopulmonary, neurologic] system(s) required my full and direct attention, intervention and personal management. The aggregate critical care time was [35] minutes. This time is in addition to time spent performing reported procedures but includes the following: [x] Data Review and interpretation [x] Patient assessment and monitoring of vital signs [x] Documentation [x] Medication orders and management Discharge Plan Departure Patient Disposition: Admitted As Inpatient Clinical Impression: Syncope, Urinary tract infection, Sepsis Admit Date/Time: 05/13/25 03:12 Admit Provider: Julio C Cardoza
[2025-05-12 22:00] LABS: Atypical Lymphocytes Percent 4.0 %; Band Neutrophils Percent 16.0 % (3-7); Lymphocytes Percent Manual 4.0 % (25-45); Monocytes Percent Manual 2.0 % (2-11); Neutrophils Absolute Manual 18630 /uL (3000-5900); Segmented Neutrophils Percent 74.0 % (38-70); Total Cells Counted 100; Troponin I < 0.012 ng/mL (0.01-0.034)
[2025-05-12 22:01] LABS: Macrocytosis 1+
[2025-05-12] MEDS: SODIUM CHLORIDE 0.9% 1,000 ML 1000 ML IV ×2 (22:35→23:47)
[2025-05-12 22:46] LABS: Appearance Urine UA SL CLOUDY; Bilirubin Urine UA NEGATIVE (NEGATIVE); Color Urine UA YELLOW; Glucose Urine UA NEGATIVE (Negative); Ketones Urine UA NEGATIVE (NEGATIVE); Leukocyte Esterase Urine UA 2+ (NEGATIVE); Nitrite Urine UA NEGATIVE (Negative); Occult Blood Urine UA NEGATIVE (Negative); Protein Urine UA NEGATIVE (Negative); Specific Gravity Urine UA 1.010 (1.000-1.035); Urobilinogen Urine UA 0.2 E.U./dL (0.2)
[2025-05-12 22:47] LABS: Lactate (Lactic Acid) 3.3 mmol/L (0.7-2.1)
[2025-05-12 22:49] LABS: pH Urine UA 5.5 (4.5-8.0)
[2025-05-12 23:08] LABS: Culture Indicated Urine Specimen Cultured
[2025-05-13] VITALS (23 sets, daily range): BP systolic 138–217; BP diastolic 57–110; PULSE 64–94; RESP 16–33; TEMP 35.6–36.9; O2SAT 92–96; BMI 29.5
[2025-05-13 00:04] LABS: Reflexed Lactate in 2 Hours Y
[2025-05-13 01:47] LABS: Lactate 2HR (Lactic Acid Rflx) 1.7 mmol/L (0.7-2.1)
[2025-05-13] MEDS: SODIUM CHLORIDE 0.9% 1,000 ML 100 ML IV ×2 (03:25→13:14)
--- NOTE | 2025-05-13 05:59 | P.HP_ITS ---
History of Present Illness History of Present Illness Date Patient Seen: 05/13/25 Time Patient Seen: 06:00 Chief complaint: syncopal Narrative: 85-year-old female with past medical history of gout, hypothyroidism and hypertension presents with syncope. Of note the patient was seen earlier in clinic today and was diagnosed with UTI. The patient was sent home on nitrofurantoin and the patient took that medication around noon today. The patient then while cooking dinner at 6 PM had a syncopal episode. Per report the patient did not have any symptoms of allergic reaction to nitrofurantoin. The patient denies any head injury but again had syncopal episode that was unwitnessed. The patient otherwise denies any recent fever, chills, nausea, vomiting, diarrhea, chest pain or shortness of breath. In our emergency room, the patient was hemodynamically stable and was saturating well on room air. The patient blood pressure actually was on the higher side with systolic in the 190s and diastolic in the 80s. Lab shows a WBC of 20,000 and a UA that was positive for UTI. The patient was given IV fluid as well as IV ceftriaxone. Troponin was negative and EKG showed no sign of acute ischemia or arrhythmia. Of note lactate was 3.3. CT scan of the head shows no acute finding. Chest x-ray was negative. And CT angio of the chest shows no pulmonary embolism. [facility] Medical History Glaucoma Gout HTN (hypertension) Hypothyroid Surgical History History of third molar tooth extraction Status post appendectomy Status post surgery (07/24/14) Status post surgery (04/27/17) Family History Father Cancer Hypertension Sister Age: 75 Mental health problem Social History household members: spouse Smoking Status: Never smoker Meds Home Medications and Allergies Home Medications ?Medication ?Instructions ?Recorded ?Confirmed ?Type CHOLECALCIFEROL (VITAMIN D) 2,000 iu PO Q DAY ##0 10/1105/01/22 History allopurinol 100 mg tablet 200 mg (2 x 100 mg) PO QDAY #180 01/23/17 05/01/22 Rx tabs diclofenac sodium 1 % topical gel 1 danay topical BID ## 100 01/23/17 05/01/22 Rx (Voltaren) levothyroxine 125 mcg tablet 125 mcg PO QDAY #90 tabs 01/23/17 05/01/22 Rx (Synthroid) losartan 25 mg tablet 25 mg PO QDAY #30 tabs 05/0205/01/22 Rx Prilosec 20 mg PO DAILY 05/01/2210/22 History Allergies Allergy/AdvReac Type Severity Reaction Status Date / Time Penicillins Allergy Intermediate HIVES Verified 05/12/25 21:32 Review of Systems Review of Systems ROS: Yes All systems reviewed with the patient and are negative except as otherwise documented Exam Vital Signs (past 8 hours): - 05/12/25 23:25 05/12/25 23:28 05/12/25 23:28 Pulse Rate 90 87 Respiratory Rate 25 H 21 Blood Pressure 195/79 H Pulse Oximetry 81 L 97 Oxygen Delivery Method 05/12/25 23:30 05/12/25 23:30 05/13/25 00:00 Pulse Rate 86 Respiratory Rate 23 Blood Pressure 199/81 H 217/86 H Pulse Oximetry 97 Oxygen Delivery Method 05/13/25 00:00 05/13/25 00:30 05/13/25 00:31 Pulse Rate 82 94 H 90 Respiratory Rate 20 23 25 H Blood Pressure Pulse Oximetry 94 94 93 Oxygen Delivery Method Room Air Room Air Room Air 05/13/25 00:31 05/13/25 01:00 Pulse Rate 86 Respiratory Rate 29 H Blood Pressure 194/80 H Pulse Oximetry 93 Oxygen Delivery Method Room Air Oxygen Delivery Method Room Air Narrative Exam Narrative: Physical Exam: GENERAL: The patient is not in any acute distressed. Awake and alert. HEENT: Nonicteric sclerae, PERRLA, EOMI. Oropharynx clear. Moist mucous membranes. Conjunctivae appear well perfused. HEART: Regular rate and rhythm without murmurs. No lower extremities edema. LUNGS: Clear to auscultation bilaterally. No wheezing, crackles or rhonchi ABDOMEN: Soft, positive bowel sounds, nontender. SKIN: No rash, no excessive bruising, petechiae, or purpura. NEUROLOGIC: AxO x 3. Cranial nerves II-XII intact without motor/sensory deficit. Objective Labs 05/12/25 21:20 05/12/25 21:20 Labs: Laboratory Results - last 24 hr 05/12/25 05/12/25 05/12/25 21:20 21:43 22:29 WBC 20.7 H RBC 3.95 L Hgb 13.7 Hct 40.6 MCV 102.6 H MCH 34.6 H MCHC 33.7 RDW 12.9 Plt Count 200 Neut % (Auto) Not Reportable Lymph % (Auto) Not Reportable [place] % (Auto) Not Reportable Eos % (Auto) Not Reportable Baso % (Auto) Not Reportable Lymph # (Auto) Not Reportable [place] # (Auto) Not Reportable Baso # (Auto) Not Reportable Total Counted 100 Seg Neutrophils % 74.0 H Band Neutrophils % 16.0 H Lymphocytes % (Manual) 4.0 L Atypical Lymphs % 4.0 H Monocytes % (Manual) 2.0 Neutrophils # (Manual) 90459 H RBC Morphology See below Macrocytosis 1+ H Sodium 136 L Potassium 3.7 Chloride 103 Carbon Dioxide 21 L BUN 9 Creatinine 0.59 Estimated GFR > 60 BUN/Creatinine Ratio 15.3 Glucose 126 H POC Whole Bld Glucose 139 H Lactate 3.3 H Calcium 9.9 Total Bilirubin 0.7 AST 26 ALT 23 Alkaline Phosphatase 82 Total Creatine Kinase 100 Troponin I < 0.012 Total Protein 7.4 Albumin 4.3 Globulin 3.1 Albumin/Globulin Ratio 1.4 Lipase 50 Urine Color Yellow Urine Appearance Sl cloudy Urine pH 5.5 Ur Specific [place] 1.010 Urine Protein Negative Urine Glucose (UA) Negative Urine Ketones Negative Urine Occult Blood Negative Urine Nitrate Negative Urine Bilirubin Negative Urine Urobilinogen 0.2 Ur Leukocyte Esterase 2+ H Urine RBC None seen Urine WBC 1-5/hpf Ur Squamous Epith Cells 0-1 /hpf Urine Bacteria Moderate (10-30) H Ur Culture Indicated? Specimen cultured Vol Urine Centrifuged 10ml (spun) 05/13/25 01:23 WBC RBC Hgb Hct MCV MCH MCHC RDW Plt Count Neut % (Auto) Lymph % (Auto) [place] % (Auto) Eos % (Auto) Baso % (Auto) Lymph # (Auto) [place] # (Auto) Baso # (Auto) Total Counted Seg Neutrophils % Band Neutrophils % Lymphocytes % (Manual) Atypical Lymphs % Monocytes % (Manual) Neutrophils # (Manual) RBC Morphology Macrocytosis Sodium Potassium Chloride Carbon Dioxide BUN Creatinine Estimated GFR BUN/Creatinine Ratio Glucose POC Whole Bld Glucose Lactate 1.7 Calcium Total Bilirubin AST ALT Alkaline Phosphatase Total Creatine Kinase Troponin I Total Protein Albumin Globulin Albumin/Globulin Ratio Lipase Urine Color Urine Appearance Urine pH Ur Specific [place] Urine Protein Urine Glucose (UA) Urine Ketones Urine Occult Blood Urine Nitrate Urine Bilirubin Urine Urobilinogen Ur Leukocyte Esterase Urine RBC Urine WBC Ur Squamous Epith Cells Urine Bacteria Ur Culture Indicated? Vol Urine Centrifuged Assessment & Plan Assessment & Plan narrative: Sepsis. Admit the patient to medical telemetry as inpatient. Likely source is UTI. Continue to treat underlying infection with IV fluid. UTI. Continue IV ceftriaxone and follow-up urine culture and blood culture. Mild elevated lactic acid. Lactic acid 3.3. IV fluid and trend lactic acid to normal. Syncope. No clear etiology. CT head is negative. Patient nonfocal on exam. Troponin EKG shows no sign of acute ischemia. No signs of arrhythmia on telemetry so far. Monitor for now. Could possibly be hypovolemia due to sepsis. History of hypothyroidism. Resume home Synthroid. Hypertension. Monitor blood pressure and resume home medication accordingly. DVT prophylaxis heparin subcu. CODE STATUS DNR/DNI Disposition likely home in 2 to 3 days. - As the provider of this telehealth evaluation, requested by the patient's evaluating physician, I attest that I introduced myself to the patient, provided my credentials and determined that telemedicine via a real-time, 2 way interactive audio and video platform is an appropriate and effective means of providing this service. - I reviewed the patient's chart and had a discussion with the member of the patient's treatment team. - The patient and I mutually agreed with continuation of this evaluation via telemedicine. The patient consented for the telemedicine evaluation. - This virtual encounter was taken place from [place] by Dr. Julio C Cardoza. The patient was evaluated at [facility]. The encounter was approximately 35 minutes. The nurse was present during the entire time of the encounter and was able to move the stethoscope in appropriate directions. Time-Based Coding :: [TOTAL MINUTES] spent with patient and on the chart (including review of chart, obtaining history, exam, reviewing outside data, placing orders, documenting exam and treatment plan, and counseling patient) on [DATE].
--- NOTE | 2025-05-13 08:07 | PM.HP.1 ---
History of Present Illness History of Present Illness Chief complaint: syncopal Narrative: From night doctor: 85-year-old female with past medical history of gout, hypothyroidism and hypertension presents with syncope. Of note the patient was seen earlier in clinic today and was diagnosed with UTI. The patient was sent home on nitrofurantoin and the patient took that medication around noon today. The patient then while cooking dinner at 6 PM had a syncopal episode. Per report the patient did not have any symptoms of allergic reaction to nitrofurantoin. The patient denies any head injury but again had syncopal episode that was unwitnessed. The patient otherwise denies any recent fever, chills, nausea, vomiting, diarrhea, chest pain or shortness of breath. In our emergency room, the patient was hemodynamically stable and was saturating well on room air. The patient blood pressure actually was on the higher side with systolic in the 190s and diastolic in the 80s. Lab shows a WBC of 20,000 and a UA that was positive for UTI. The patient was given IV fluid as well as IV ceftriaxone. Troponin was negative and EKG showed no sign of acute ischemia or arrhythmia. Of note lactate was 3.3. CT scan of the head shows no acute finding. Chest x-ray was negative. And CT angio of the chest shows no pulmonary embolism. S: She was doing well. She had a syncopal episode yesterday. She was hypertensive when medics evaluate her. She feels fine today, she was started on antibiotics for a UTI yesterday. She denies dehydration. Her was recently been diagnosed with Salmonella, but she denies diarrhea. She does have a heart murmur which she has not had evaluated with echo in the past and also reports leg edema for the last year. [facility] Medical History Glaucoma HTN (hypertension) Hypothyroid Gout Surgical History Status post surgery (04/27/17) Status post surgery (07/24/14) History of third molar tooth extraction Status post appendectomy Family History Father Cancer Hypertension Sister Age: 78 Mental health problem Social History household members: spouse Smoking Status: Never smoker Meds Home Medications and Allergies Home Medications ?Medication ?Instructions ?Recorded ?Confirmed ?Type CHOLECALCIFEROL (VITAMIN D) 2,000 iu PO Q DAY ##0 03/01/11 05/13/25 History diclofenac sodium 1 % topical gel 2 g topical BID 05/13/25 05/13/25 History levothyroxine 125 mcg tablet 137 mcg PO QDAY 05/13/25 05/13/25 History (Synthroid) levothyroxine 137 mcg tablet 137 mcg PO DAILY 05/13/25 05/13/25 History losartan 25 mg tablet 50 mg PO QDAY 05/13/25 05/13/25 History losartan 50 mg tablet 50 mg PO DAILY 05/13/25 05/13/25 History omeprazole 40 mg capsule,delayed 40 mg PO DAILY 05/13/25 05/13/25 History release Allergies Allergy/AdvReac Type Severity Reaction Status Date / Time Penicillins Allergy Intermediate HIVES Verified 05/12/25 21:32 Review of Systems Review of Systems Narrative: All else reviewed and otherwise unremarkable except as noted in the history and physical. Exam Vital Signs (past 8 hours): - 05/13/25 00:30 05/13/25 00:31 05/13/25 00:31 Pulse Rate 94 H 90 Respiratory Rate 23 25 H Blood Pressure 194/80 H Pulse Oximetry 94 93 Oxygen Delivery Method Room Air Room Air 05/13/25 01:00 05/13/25 01:30 05/13/25 02:00 Pulse Rate 86 86 90 Respiratory Rate 29 H 23 33 H Blood Pressure Pulse Oximetry 93 93 94 Oxygen Delivery Method Room Air Room Air Room Air 05/13/25 02:10 05/13/25 02:10 05/13/25 02:30 Pulse Rate 89 Respiratory Rate 23 Blood Pressure 199/87 H 168/73 H Pulse Oximetry 94 Oxygen Delivery Method Room Air 05/13/25 02:30 05/13/25 03:00 05/13/25 03:00 Pulse Rate 81 79 Respiratory Rate 20 21 Blood Pressure 173/80 H Pulse Oximetry 93 94 Oxygen Delivery Method Room Air Room Air 05/13/25 03:30 05/13/25 03:30 05/13/25 04:00 Pulse Rate 81 Respiratory Rate 33 H Blood Pressure 199/81 H 164/79 H Pulse Oximetry 95 Oxygen Delivery Method Room Air 05/13/25 04:00 05/13/25 04:30 05/13/25 04:30 Pulse Rate 78 73 Respiratory Rate 21 18 Blood Pressure 169/74 H Pulse Oximetry 93 93 Oxygen Delivery Method Room Air Room Air 05/13/25 05:00 05/13/25 05:00 05/13/25 05:30 Pulse Rate 73 Respiratory Rate 17 Blood Pressure 157/110 H 138/65 Pulse Oximetry 95 Oxygen Delivery Method Room Air 05/13/25 05:30 05/13/25 06:03 05/13/25 06:05 Pulse Rate 67 79 76 Respiratory Rate 17 21 Blood Pressure Pulse Oximetry 93 95 95 Oxygen Delivery Method Room Air Room Air Room Air 05/13/25 06:05 Pulse Rate Respiratory Rate Blood Pressure 169/73 H Pulse Oximetry Oxygen Delivery Method Oxygen Delivery Method Room Air Narrative Exam Narrative: NAD, alert and oriented, fluent speech, calm. Normocephalic skull, EOMI, anicteric sclera, symmetric pupils. Oropharynx unremarkable, no droop. Neck supple, midline trachea, no adenopathy. Lungs clear, normal rate and effort. Heart regular, Systolic murmur and no gallop or rub. Abdomen is soft, non distended and non tender. Extremities with 2+ edema. Skin is free of rash or lesions. Joints are not swollen or deformed. Judgment appears to be normal. Objective Labs 05/12/25 21:20 05/12/25 21:20 Labs: Laboratory Results - last 24 hr 05/12/25 05/12/25 05/12/25 21:20 21:43 22:29 WBC 20.7 H RBC 3.95 L Hgb 13.7 Hct 40.6 MCV 102.6 H MCH 34.6 H MCHC 33.7 RDW 12.9 Plt Count 200 Neut % (Auto) Not Reportable Lymph % (Auto) Not Reportable [place] % (Auto) Not Reportable Eos % (Auto) Not Reportable Baso % (Auto) Not Reportable Lymph # (Auto) Not Reportable [place] # (Auto) Not Reportable Baso # (Auto) Not Reportable Total Counted 100 Seg Neutrophils % 74.0 H Band Neutrophils % 16.0 H Lymphocytes % (Manual) 4.0 L Atypical Lymphs % 4.0 H Monocytes % (Manual) 2.0 Neutrophils # (Manual) 99883 H RBC Morphology See below Macrocytosis 1+ H Sodium 136 L Potassium 3.7 Chloride 103 Carbon Dioxide 21 L BUN 9 Creatinine 0.59 Estimated GFR > 60 BUN/Creatinine Ratio 15.3 Glucose 126 H POC Whole Bld Glucose 139 H Lactate 3.3 H Calcium 9.9 Total Bilirubin 0.7 AST 26 ALT 23 Alkaline Phosphatase 82 Total Creatine Kinase 100 Troponin I < 0.012 Total Protein 7.4 Albumin 4.3 Globulin 3.1 Albumin/Globulin Ratio 1.4 Lipase 50 Urine Color Yellow Urine Appearance Sl cloudy Urine pH 5.5 Ur Specific [place] 1.010 Urine Protein Negative Urine Glucose (UA) Negative Urine Ketones Negative Urine Occult Blood Negative Urine Nitrate Negative Urine Bilirubin Negative Urine Urobilinogen 0.2 Ur Leukocyte Esterase 2+ H Urine RBC None seen Urine WBC 1-5/hpf Ur Squamous Epith Cells 0-1 /hpf Urine Bacteria Moderate (10-30) H Ur Culture Indicated? Specimen cultured Vol Urine Centrifuged 10ml (spun) 05/13/25 01:23 WBC RBC Hgb Hct MCV MCH MCHC RDW Plt Count Neut % (Auto) Lymph % (Auto) [place] % (Auto) Eos % (Auto) Baso % (Auto) Lymph # (Auto) [place] # (Auto) Baso # (Auto) Total Counted Seg Neutrophils % Band Neutrophils % Lymphocytes % (Manual) Atypical Lymphs % Monocytes % (Manual) Neutrophils # (Manual) RBC Morphology Macrocytosis Sodium Potassium Chloride Carbon Dioxide BUN Creatinine Estimated GFR BUN/Creatinine Ratio Glucose POC Whole Bld Glucose Lactate 1.7 Calcium Total Bilirubin AST ALT Alkaline Phosphatase Total Creatine Kinase Troponin I Total Protein Albumin Globulin Albumin/Globulin Ratio Lipase Urine Color Urine Appearance Urine pH Ur Specific [place] Urine Protein Urine Glucose (UA) Urine Ketones Urine Occult Blood Urine Nitrate Urine Bilirubin Urine Urobilinogen Ur Leukocyte Esterase Urine RBC Urine WBC Ur Squamous Epith Cells Urine Bacteria Ur Culture Indicated? Vol Urine Centrifuged Assessment & Plan Assessment & Plan narrative: 1. Sepsis. 2. UTI. 3. Mild elevated lactic acid. Lactic acid 3.3. IV fluid and trend lactic acid to normal. 4. Syncope and heart murmur. 5. History of hypothyroidism. Resume home Synthroid. 6. Hypertension. Monitor blood pressure and resume home medication accordingly. PLAN: - Continue IV fluids and antibiotics. - resume losartan 50 mg q.a.m.. - Cardiac echo to rule out aortic stenosis. DVT prophylaxis heparin subcu. CODE STATUS DNR/DNI Disposition likely home in 2 to 3 days. Time-Based Coding :: [TOTAL MINUTES] spent with patient and on the chart (including review of chart, obtaining history, exam, reviewing outside data, placing orders, documenting exam and treatment plan, and counseling patient) on [DATE].
[2025-05-13 09:27] LABS: Lactate (Lactic Acid) 2.4 mmol/L (0.7-2.1)
[2025-05-13] MEDS: PANTOPRAZOLE DR 20 MG TABLET PO (09:53)
[2025-05-13] MEDS: HEPARIN 5,000 UNIT/ML VIAL 5000 UNIT SUBCUT (09:54)
[2025-05-13 10:53] LABS: Reflexed Lactate in 2 Hours Y
--- NOTE | 2025-05-13 10:59 | DI.ECHO.S_ITS ---
[facility] : : [id number] : [place] [address] : : [id number] : : Phone: [phone] Echocardiogram Report + + :Name: PAUL HERNANDEZ Study Date: 05/13/2025 Height: 64 in : :[facility] ReadingLocation: Weight: 172 lb : : Gender: Female BSA: 1.8 m2 : :: 1940 Age: 85 yrs BP: 173/65 mmHg: :Reason For Study: SYNCOPE AND MURMUR : :Ordering Physician: VIRGINIE, : :CYNTHIA Crook Performed By: Luma Hutchinson : :Referring: CYNTHIA RACHEL : + + Interpretation Summary The study quality was technically difficult. The patient was in sinus rhythm with heart rates between 62-77 bpm during the exam. The left ventricular cavity is small. The left ventricle is hyperdynamic. The ejection fraction is estimated to be 75-80%. An intracavitary gradient is suspected. The right ventricle is normal in size and function. There is mild mitral regurgitation. The aortic valve is not well visualized. The peak aortic velocity is 2.0 m/sec. There is no hemodynamically significant valvular aortic stenosis. The IVC is of normal diameter and collapses greater than 50% with a sniff. This suggests a low right atrial pressure of 3 mm Hg. There is mild luminal irregularity and echogenicity in the abdominal aorta, suggestive of aortic atherosclerotic disease. Procedure: A two-dimensional transthoracic echocardiogram with color flow and Doppler was performed. There is no prior echocardiogram noted for this patient. The study quality was technically difficult. The patient was in sinus rhythm with heart rates between 62-77 bpm during the exam. Left Ventricle: The left ventricular cavity is small. There is normal left ventricular wall thickness. An intracavitary gradient is suspected. The ejection fraction is estimated to be 75-80%. The left ventricle is hyperdynamic. Grade I diastolic dysfunction with normal left atrial pressure. Right Ventricle: The right ventricle is normal in size and function. Atria: The left atrial size is normal. Right atrial size is normal. There is no Doppler evidence for an interatrial shunt. Mitral Valve: The mitral valve leaflets are slightly calcified. The mitral valve chordae are thickened and/or calcified. No significant mitral valve stenosis. There is mild mitral regurgitation. Aortic Valve: The aortic valve is mildly calcified. The aortic valve is not well visualized. The peak aortic velocity is 2.0 m/sec. The aortic valve mean gradient is 9 mmHg. The calculated aortic valve area is 2.1 cm2. There is no hemodynamically significant valvular aortic stenosis. No aortic regurgitation is present. Tricuspid Valve: The tricuspid valve is not well visualized, but is grossly normal. There is trace tricuspid regurgitation. Pulmonary artery pressures cannot be estimated because of the lack of a measurable TR jet velocity but the IVC suggests a CVP of around 3 mmHg. Pulmonic Valve: The pulmonic valve is not well visualized. There is no pulmonic valvular regurgitation. Great Vessels: The aortic root is normal size. The dimensions of the ascending aorta are normal. There is mild luminal irregularity and echogenicity in the abdominal aorta, suggestive of aortic atherosclerotic disease. The IVC is of normal diameter and collapses greater than 50% with a sniff. This suggests a low right atrial pressure of 3 mm Hg. Pericardium/ Pleura There is an anterior echo-free space consistent with a fat pad. There is a trivial pericardial effusion noted. There are no echocardiographic indications of cardiac tamponade. There is no pleural effusion. MMode/2D Measurements & Calculations LVIDd: 3.8 cm LVOT diam: 2.0 cm LVIDs: 2.5 cm Ao root diam: 2.8 cm FS: 32.8 % asc Aorta Diam: 2.8 cm IVSd: 1.1 cm LVPWd: 0.85 cm LV booker. diameter/BSA (cm/m^2): 2.1 LV sys. diameter/BSA (cm/m^2): 1.4 LA A2 area: 16.3 cm2 RA long axis: 4.3 cm LA A4 area: 15.9 cm2 RA area: 11.4 cm2 LA length (vol): 4.9 cm RA vol: 25.7 ml LA vol: 45.3 ml RA : 14.0 ml/m2 LA vol index: 24.7 ml/m2 IVC diam: 1.7 cm RVD1 (basal): 2.9 cm RVD2 (mid): 2.0 cm TAPSE: 2.0 cm Doppler Measurements & Calculations Ao V2 max: 204.7 cm/sec LVOT Max Kwame: 130.3 cm/sec Ao V2 mean: 140.9 cm/sec LV V1 max P.8 mmHg Ao max P.8 mmHg LV V1 VTI: 26.0 cm Ao mean P.0 mmHg LELAND(I,D): 2.3 cm2 Ao V2 VTI: 37.2 cm LELAND(V,D): 2.1 cm2 sev ratio: 0.70 LELAND indexed to BSA (cm^2/m^2): 1.2 MV E max kwame: 97.1 cm/sec PA V2 max: 81.4 cm/sec MV A max kwame: 101.7 cm/sec PA V2 mean: 56.2 cm/sec MV E/A: 0.95 PA mean P.4 mmHg Med Peak E' Kwame: 9.7 cm/sec PA pr(Accel): 29.3 mmHg E/E' med: 10.0 Lat Peak E' Kwame: 6.6 cm/sec E/E' lat: 14.6 E/e' average: 12.3 MV dec time: 0.22 sec SV(LVOT): 84.0 ml Reading Physician:05:06 PM
[2025-05-13] MEDS: LEVOTHYROXINE 137 MCG TABLET PO (11:37)
[2025-05-13] MEDS: LOSARTAN 25 MG TABLET 50 MG PO (11:37)
[2025-05-13 11:55] LABS: Lactate 2HR (Lactic Acid Rflx) 1.6 mmol/L (0.7-2.1)
--- NOTE | 2025-05-13 14:10 | PT.IIE ---
Current Diagnoses Sepsis, unspecified organism (05/13/25) Surgical History (Last Reviewed 05/13/25 @ 08:[address] MD) History of third molar tooth extraction Status post appendectomy Status post surgery (07/24/14) Status post surgery (04/27/17) Medical History (Last Reviewed 05/13/25 @ 08:[address] MD) Glaucoma Gout HTN (hypertension) Hypothyroid Physical Therapy Inpatient Evaluation/Re-Eval M1 PT/OT-IP Prior Functional Status Start: 05/13/25 13:44 Freq: NEEDED Status: Active Protocol: Document 05/13/25 13:45 PARIMUTUEL TICKET CHECKER (Rec: 05/13/25 14:09 PARIMUTUEL TICKET CHECKER [id number]) Medical Review Prior Functional Status Medical History Yes Reviewed Communication ind Mobility and Gait ind in household and community with SPC or 4WW however reports 1-2 falls in past year d/t chronic balance deficits from back surgery, had 14 weeks of OP PT Activities of Daily ind Living and IADL's Social History Household Members spouse Living Arrangements Apartment/Condo Number of Floors ( One Floor Floors) Number of Stairs To 0 Enter/Railing? Home Equipment Four Wheel Walker,Straight Cane Additional Social lives in a senior complex History Comment M2 PT-IP Current Condition Start: 05/13/25 13:44 Freq: NEEDED Status: Active Protocol: Document 05/13/25 13:45 PARIMUTUEL TICKET CHECKER (Rec: 05/13/25 14:09 PARIMUTUEL TICKET CHECKER [id number]) Physical Therapy Current Condition Current Condition Evaluation Date 05/13/25 Treatment Diagnosis syncope, UTI with sepsis M3 PT-IP Subjective Start: 05/13/25 13:44 Freq: NEEDED Status: Active Protocol: Document 05/13/25 13:45 PARIMUTUEL TICKET CHECKER (Rec: 05/13/25 14:09 PARIMUTUEL TICKET CHECKER [id number]) Subjective Physical Therapy Visit Type Type Initial Evaluation Visit Start Time 10:28 Visit Stop Time 10:52 Number of SENIOR ERP CONSULTANT Visits 0 Physical Therapy Visit Comments Patient Comments Nurse cleared pt for PT, pt in bed upon PT arrival, very pleasant and agreeable to PT eval. present throughout session. Therapy Pain Assessment Pain When Pain Assessed During Mobility Pain Present Pain Present Denied Pain M4 PT-IP Mobility and Gait Start: 05/13/25 13:44 Freq: NEEDED Status: Active Protocol: Document 05/13/25 13:45 PARIMUTUEL TICKET CHECKER (Rec: 08/13/25 14:09 PARIMUTUEL TICKET CHECKER [id number]) PT-Bed Mobility Assessment Rolling Type of Rolling Roll to Left Level of Assist Independent Supine to Sit Supine to Sit Independent Scooting Scooting to Edge of Independent Bed PT-Transfer Assessment Sit to and From Stand Sit to and from Standby Assistance Stand Equipment Transfer Assistive Front Wheeled Walker Device Orthotic/Prosthetic No Devices or Brace: Transfers Transfer Destination Chair Transfer Technique Stand Step Pivot Transfer Ability Level of Assist Standby Assistance Comments Mobility Comments SBA for general safety during transfers and gait with RW but without LOB or large safety concerns and appears to be near baseline, cueing to keep RW in front of her while turning to sit in chair. BP supine at rest 168/ 67 HR 69, BP after gait 199/79 HR 72, nurse notified of elevated BP. Gait Assessment Gait Gait Assistance Standby Assistance Required: Distance (Feet) 80 Able to Maintain Yes Weight Bearing Status During Gait Assistive Devices Assistive Device Front Wheeled Walker Orthotic/Prosthetic No Devices or Brace: Gait Deviations General Gait Pattern Within Normal Limits Factors Limiting Gait Function Factors Limiting Decreased Activity Tolerance Gait Function Comments Gait Comments Gait WNL with RW without LOB, increased gait speed and became mildly fatigued alf through, VC to slow gait speed and able to make it back to room without safety concerns. PT-Balance Assessment Sitting Balance and Reactions Static Sitting Normal Balance Ability Dynamic Sitting Good Balance Ability Standing Balance and Reactions Static Standing Normal Balance Ability Dynamic Standing Fair Balance Ability Device Used RW M5 PT-IP Objective Assessments Start: 05/13/25 13:44 Freq: NEEDED Status: Active Protocol: Document 05/13/25 13:45 PARIMUTUEL TICKET CHECKER (Rec: 05/13/25 14:09 PARIMUTUEL TICKET CHECKER [id number]) Orientation Orientation/Cognition Level of Alertness Alert Orientation Name,Month,Year,Place,Situation Language Function No Deficits Noted Ability Safety Awareness Understands Safety Issues Memory Description No Deficits Noted Gross Range of Motion Upper Extremity ROM Assessment Within Functional Limits Lower Extremity ROM Assessment Within Functional Limits Strength Upper Extremity Strength Assessment Within Functional Limits Lower Extremity Strength Assessment Within Functional Limits M6 PT-IP Treatment Start: 05/13/25 13:44 Freq: NEEDED Status: Active Protocol: Document 05/13/25 13:45 PARIMUTUEL TICKET CHECKER (Rec: 05/13/25 14:09 PARIMUTUEL TICKET CHECKER [id number]) Physical Therapy Treatment Education Education Provided Safety M7 PT-IP Assessment and Plan Start: 05/13/25 13:44 Freq: NEEDED Status: Active Protocol: Document 05/13/25 13:45 PARIMUTUEL TICKET CHECKER (Rec: 05/13/25 14:09 PARIMUTUEL TICKET CHECKER [id number]) PT Summary Assessment and Plan Potential Rehabilitation Good Potential Status of Condition Stable at Evaluation Summary Impairments Activity Tolerance Assessment Summary Pt performed bed mobility ind, transfers and gait ~80' with SBA with RW without LOB with mild decreased endurance during gait. Pt reports near to baseline aside from decreased endurance and denies HH or OP PT as she recently got done with 14 weeks of OP PT. PT recommends pt will be able to safely return home with spouse without need for HH or OP PT. Goals Bed Mobility Goal Independent Transfer Goal Independent Gait Goal Independent Gait Distance 150' Days to Meet Goals 7 Frequency of Treatment Frequency Of Once a Day Treatment Treatment Plan Physical Therapy Bed Mobility Training,Transfer Training,Gait Training, Treatment Plan Therapeutic Exercise,Balance Retraining,Neuromuscular Re-ed Recommendations To Nursing Amount of Assist Standby Assistance,1 Person Assist Needed Discharge Recommendations PT Discharge Home Recommendations Other Discharge no post D/C PT needed Recommendations Equipment Needed for none, pt has SPC and 4WW Home Before Discharge Transportation Needs Private Vehicle at Discharge - PT assist x1
--- NOTE | 2025-05-13 17:32 | P.DS_ITS ---
History of Present Illness History of Present Illness Chief complaint: syncopal Narrative: From night doctor: 85-year-old female with past medical history of gout, hypothyroidism and hypertension presents with syncope. Of note the patient was seen earlier in clinic today and was diagnosed with UTI. The patient was sent home on nitrofurantoin and the patient took that medication around noon today. The patient then while cooking dinner at 6 PM had a syncopal episode. Per report the patient did not have any symptoms of allergic reaction to nitrofurantoin. The patient denies any head injury but again had syncopal episode that was unwitnessed. The patient otherwise denies any recent fever, chills, nausea, vomiting, diarrhea, chest pain or shortness of breath. In our emergency room, the patient was hemodynamically stable and was saturating well on room air. The patient blood pressure actually was on the higher side with systolic in the 190s and diastolic in the 80s. Lab shows a WBC of 20,000 and a UA that was positive for UTI. The patient was given IV fluid as well as IV ceftriaxone. Troponin was negative and EKG showed no sign of acute ischemia or arrhythmia. Of note lactate was 3.3. CT scan of the head shows no acute finding. Chest x-ray was negative. And CT angio of the chest shows no pulmonary embolism. S: She was doing well. She had a syncopal episode yesterday. She was hypertensive when medics evaluate her. She feels fine today, she was started on antibiotics for a UTI yesterday. She denies dehydration. Her was recently been diagnosed with Salmonella, but she denies diarrhea. She does have a heart murmur which she has not had evaluated with echo in the past and also reports leg edema for the last year. Discharge Providers Provider Date of admission: 05/13/25 03:12 Discharge Date: 05/13/25 Primary care physician: Jovita Whitten MD Consults: 05/13/25 03:07 Consult to Occupational Therapy Evaluate & Treat Comment: Physician Instructions: Evaluate and treat Consult to Physical Therapy Evaluate & Treat Comment: Physician Instructions: Evaluate and Treat Discharge provider: George Lane MD Summary Hospital Course Discharge Diagnosis: 1. Sepsis. Resolved. 2. UTI. Improved. 3. Mild elevated lactic acid. Lactic acid 3.3. Improved. 4. Syncope and heart murmur. Normal ECHO. 5. History of hypothyroidism. Resume home Synthroid. 6. Hypertension. Monitor blood pressure and resume home medication accordingly. Hospital Course: She was admitted with a syncopal episode. She was felt to be volume depleted was fluid resuscitated. She had a systolic murmur appreciated on exam and an echo was obtained which was negative for evidence of aortic stenosis. She did have a hyper dynamic ventricle. She was found to have evidence of urine tract infection with cultures pending and we will be discharged home with Cipro for 5 additional days of 500 b.i.d.. Status at Discharge Cognitive/behavioral status at discharge: oriented Functional status at discharge: independent ambulation Overall status at discharge: patient is back to baseline Time Spent with Patient Time spent: Greater than 30 minutes Exam Vital Signs (past 8 hours): - 05/13/25 12:00 05/13/25 15:45 Temperature 96.1 F L 97.0 F L Pulse Rate 87 64 Respiratory Rate 18 16 Blood Pressure 173/65 H 142/57 H Pulse Oximetry 96 94 Oxygen Delivery Method Room Air Narrative Exam Narrative: NAD, alert and oriented. Fluent speech. Lungs are clear, normal rate and effort. Heart is regular, no murmur gallop or rub. Abdomen is soft, non distended. Extremities are free of edema. Objective ECG Impression: Intervals [place] Rate: 85 P: 41 NV: 202 QRS: 50 QRSD: 84 T: 15 QT: 366 QTc: 435 Interpretive Statements Normal sinus rhythm Imaging Multiple studies: : Radiologist's impression: ECHO: The study quality was technically difficult. The patient was in sinus rhythm with heart rates between 62-77 bpm during the exam. The left ventricular cavity is small. The left ventricle is hyperdynamic. The ejection fraction is estimated to be 75-80%. An intracavitary gradient is suspected. The right ventricle is normal in size and function. There is mild mitral regurgitation. The aortic valve is not well visualized. The peak aortic velocity is 2.0 m/sec. There is no hemodynamically significant valvular aortic stenosis. The IVC is of normal diameter and collapses greater than 50% with a sniff. This suggests a low right atrial pressure of 3 mm Hg. There is mild luminal irregularity and echogenicity in the abdominal aorta, suggestive of aortic atherosclerotic disease. Chest CTA: 1. No pulmonary embolism. 2. Interlobular septal thickening. This could represent pulmonary edema. Abd/pelvis CT: No acute inflammatory process identified. Gallstones. Head CT: No acute intracranial pathology. CXR: No acute cardiopulmonary abnormality is seen. Labs 05/12/25 21:20 05/12/25 21:20 Labs: Laboratory Results - last 24 hr 05/12/25 05/12/25 05/12/25 21:20 21:43 22:29 WBC 20.7 H RBC 3.95 L Hgb 13.7 Hct 40.6 MCV 102.6 H MCH 34.6 H MCHC 33.7 RDW 12.9 Plt Count 200 Neut % (Auto) Not Reportable Lymph % (Auto) Not Reportable [place] % (Auto) Not Reportable Eos % (Auto) Not Reportable Baso % (Auto) Not Reportable Lymph # (Auto) Not Reportable [place] # (Auto) Not Reportable Baso # (Auto) Not Reportable Total Counted 100 Seg Neutrophils % 74.0 H Band Neutrophils % 16.0 H Lymphocytes % (Manual) 4.0 L Atypical Lymphs % 4.0 H Monocytes % (Manual) 2.0 Neutrophils # (Manual) 71217 H RBC Morphology See below Macrocytosis 1+ H Sodium 136 L Potassium 3.7 Chloride 103 Carbon Dioxide 21 L BUN 9 Creatinine 0.59 Estimated GFR > 60 BUN/Creatinine Ratio 15.3 Glucose 126 H POC Whole Bld Glucose 139 H Lactate 3.3 H Calcium 9.9 Total Bilirubin 0.7 AST 26 ALT 23 Alkaline Phosphatase 82 Total Creatine Kinase 100 Troponin I < 0.012 Total Protein 7.4 Albumin 4.3 Globulin 3.1 Albumin/Globulin Ratio 1.4 Lipase 50 Urine Color Yellow Urine Appearance Sl cloudy Urine pH 5.5 Ur Specific [place] 1.010 Urine Protein Negative Urine Glucose (UA) Negative Urine Ketones Negative Urine Occult Blood Negative Urine Nitrate Negative Urine Bilirubin Negative Urine Urobilinogen 0.2 Ur Leukocyte Esterase 2+ H Urine RBC None seen Urine WBC 1-5/hpf Ur Squamous Epith Cells 0-1 /hpf Urine Bacteria Moderate (10-30) H Ur Culture Indicated? Specimen cultured Vol Urine Centrifuged 10ml (spun) 05/13/25 05/13/25 05/13/25 01:23 09:00 11:25 WBC RBC Hgb Hct MCV MCH MCHC RDW Plt Count Neut % (Auto) Lymph % (Auto) [place] % (Auto) Eos % (Auto) Baso % (Auto) Lymph # (Auto) [place] # (Auto) Baso # (Auto) Total Counted Seg Neutrophils % Band Neutrophils % Lymphocytes % (Manual) Atypical Lymphs % Monocytes % (Manual) Neutrophils # (Manual) RBC Morphology Macrocytosis Sodium Potassium Chloride Carbon Dioxide BUN Creatinine Estimated GFR BUN/Creatinine Ratio Glucose POC Whole Bld Glucose Lactate 1.7 2.4 H 1.6 Calcium Total Bilirubin AST ALT Alkaline Phosphatase Total Creatine Kinase Troponin I Total Protein Albumin Globulin Albumin/Globulin Ratio Lipase Urine Color Urine Appearance Urine pH Ur Specific [place] Urine Protein Urine Glucose (UA) Urine Ketones Urine Occult Blood Urine Nitrate Urine Bilirubin Urine Urobilinogen Ur Leukocyte Esterase Urine RBC Urine WBC Ur Squamous Epith Cells Urine Bacteria Ur Culture Indicated? Vol Urine Centrifuged [facility] Medical History Glaucoma HTN (hypertension) Hypothyroid Gout Surgical History Status post surgery (04/27/17) Status post surgery (07/24/14) History of third molar tooth extraction Status post appendectomy Family History Father Cancer Hypertension Sister Age: 78 Mental health problem Social History household members: spouse Smoking Status: Never smoker Discharge Assessment & Plan Assessment and Plan Assessment: 1. Syncope. 2. UTI Plan of Treatment: Discharge home with 5 additional days of Cipro and close follow up with primary care. Discharge Plan Discharge Plan Patient Disposition: Home Provider Discharge Comment: Stable for discharge home. Discharge orders & Medications Prescriptions: New ciprofloxacin HCl [Cipro] 500 mg tablet 500 mg PO BID Qty: 10 0RF Continued CHOLECALCIFEROL (VITAMIN D) 2,000 iu PO Q DAY Qty: 0 losartan 50 mg tablet 50 mg PO DAILY levothyroxine 137 mcg tablet 137 mcg PO DAILY omeprazole 40 mg capsule,delayed release(DR/EC) 40 mg PO DAILY levothyroxine [Synthroid] 125 MCG tablet 137 mcg PO QDAY losartan 25 MG tablet 50 mg PO QDAY diclofenac sodium 1 % gel 2 g Topical BID Medication counseling provided by Pharmacist: No Follow up/Referrals: Jovita Whitten MD [Primary Care Provider, Family Practice] Diet/Activity/Treatments Diet: Diet as Tolerated Visit Report/Discharge Packet Instructions: DI for Syncope in Adults (Fainting), DI for Urinary Tract Infection (UTI) Stand Alone Forms: Patient Portal/API Discharge Data Primary Care Provider: Jovita Whitten
--- NOTE | 2025-05-13 18:04 | CM.DPNOTE ---
DCP Continued: Reviewed EMR and team rounds for pt?s medical status. Per hospitalist, pt cleared for discharge with family. Per RN, pt requesting a medical priority loading pass for ferry back to [place]. DCP provided Priority Loading ferry pass as pt does not have a ferry reservation. DCP updated pt phone number in chart (was previously incorrect) and updated with spouse and daughter contact information. Plan: Anticipating dc home with spouse to transport. CM Team will continue to follow for coordination of discharge plans. PAULO BarrySW
== END 2025-05-13 18:09 | disposition home or self-care (01) | DRG 872 ==
LOC: ED 05-13 03:01 → AC 05-13 03:13
PROVIDERS: Admitting Provider Internal Medicine; Emergency Provider Emergency Medicine; PCP Family Medicine; Referring Provider Emergency Medicine; Visit Provider Internal Medicine
DX: A41.9 Sepsis, unspecified organism (principal); N39.0 Urinary tract infection, site not specified; R55 Syncope and collapse; E03.9 Hypothyroidism, unspecified; I10 Essential (primary) hypertension; Z66 Do not resuscitate; R01.1 Cardiac murmur, unspecified; R74.02 Elevation of levels of lactic acid dehydrogenase [LDH]; E86.9 Volume depletion, unspecified; Z79.890 Hormone replacement therapy
CPT/HCPCS: 36415; 70450; 71045; 71275; 74177; 80053; 81001; 82550; 82962; 83605; 83690; 84484; 85007; 85025; 87040; 87086; 93005; 93306; 96361; 96365; 97116; 97162; 99284; 99291; J0696; J1644; Q9967